=== PATIENT | female | born 1990 | race African-American/Black ===

== ENCOUNTER 2016-06-21 07:32 | Emergency (ER) | payer SELFPAY ==
[~2016-06-21] VITALS: Ht 167.6 cm; Wt 50.0 kg
[~2016-06-21 07:32] MED LIST: ALEVE220 M2 PO; ATIVAN0.5 MG PO; BACTRIM DS1 TAB PO; KEPPRA250 M1 PO; NO HOME MEDS; TORADOL PO; ULTRAM50 MG OR; ULTRAM50 MG PO; ZITHROMAX250 MG OR
[2016-06-21 08:40] LABS: HEMATOCRIT 43.3 % (37.0-47.0); HEMOGLOBIN 14.3 g/dl (12.0-16.0); IMMATURE GRANULOCYTES 0.2 % (0.0-1.0); MEAN CELL VOLUME 89.1 fL CALC (80.0-100.0); MEAN CORPUSCULAR HGB 29.4 pG CALC (26.0-32.0); NEUT# 3.38 thou/uL (2.00-7.15); RED BLOOD COUNT 4.86 mill/uL (4.20-5.60)
[2016-06-21 08:47] LABS: ALBUMIN 4.5 g/dL (3.2-5.0); ALKALINE PHOSPHATASE 71 u/l (38-126); ANION GAP 16 (6-22 (CALC)); BILIRUBIN, TOTAL 0.8 mg/dL (0.0-1.4); BUN 10 mg/dL (7-17); BUN/CREATININE RATIO 11 (12-20 (CALC)); CALCIUM 9.5 mg/dL (8.4-10.2); CARBON DIOXIDE 22 mmol/l (22-30); CHLORIDE 106 mmol/l (95-108); CREATININE 0.9 mg/dL (0.5-1.0); GFR > 60 ML/MIN (>=60 (CALC)); GFR FOR AFR.AMER. > 60 ML/MIN (>=60 (CALC)); GLUCOSE 97 mg/dL (65-105); POTASSIUM 3.7 mmol/l (3.5-5.1); SGOT/AST 20 u/l (14-36); SGPT/ALT 25 u/l (9-52); SODIUM 141 mmol/l (137-146); TOTAL PROTEIN 8.4 g/dL (6.3-8.2)
[2016-06-21] MEDS ORDERED: KEPPRA250 M1 PO (08:58)
[2016-06-21 09:39] VITALS: BP 119/67
[2016-06-21 09:57] LABS: URINE BILIRUBIN - DIPSTICK NEGATIVE (NEGATIVE); URINE BLOOD DIPSTICK TRACE-INTACT (NEGATIVE); URINE CLARITY CLOUDY; URINE COLOR YELLOW; URINE GLUCOSE - DIPSTICK NEGATIVE (NEGATIVE); URINE KETONE NEGATIVE (NEGATIVE); URINE NITRITE - DIPSTICK NEGATIVE (Negative); URINE PROTEIN - DIPSTICK NEGATIVE (NEG-TRACE)
[2016-06-21 09:58] LABS: URINE LEUK ESTERASE MODERATE (NEGATIVE)
[2016-06-21 10:03] LABS: URINE BACTERIA FEW hpf; URINE RBC 0-2 RBC/hpf (0-5); URINE SQUAMOUS EPITHELIAL CELL MANY EPI/hpf (0-FEW)
[2016-06-21 10:04] LABS: BARBITURATES NEGATIVE (NEGATIVE); COCAINE NEGATIVE (NEGATIVE); METHADONE NEGATIVE (NEGATIVE); OXCYCODONE NEGATIVE (NEGATIVE); TETRAHYDROCANNABIONOL POSITIVE (NEGATIVE); TRICYLIC ANTIDEPRESSANTS NEGATIVE (NEGATIVE); URINE MUCUS FEW hpf (NONE-FEW)
== END 2016-06-21 09:51 | disposition home or self-care (01) | DRG 101 ==
LOC: ED 07:32
PROVIDERS: Emergency Medicine
DX: G40.909 Epilepsy, unspecified, not intractable, without status epilepticus (principal); Z91.14 Patient's other noncompliance with medication regimen

== ENCOUNTER 2016-07-02 17:23 | Emergency (ER) | payer SELFPAY ==
[~2016-07-02] VITALS: Ht 167.6 cm; Wt 55.0 kg
[2016-07-02 17:57] LABS: HEMATOCRIT 43.6 % (37.0-47.0); HEMOGLOBIN 14.2 g/dl (12.0-16.0); IMMATURE GRANULOCYTES 0.3 % (0.0-1.0); MEAN CELL VOLUME 90.1 fL CALC (80.0-100.0); MEAN CORPUSCULAR HGB 29.3 pG CALC (26.0-32.0); MEAN CORPUSCULAR HGB CONC 32.6 g/L CALC (32.0-36.0); NEUT# 5.23 thou/uL (2.00-7.15); RED BLOOD COUNT 4.84 mill/uL (4.20-5.60); RED CELL DISTRI WIDTH 13.3 % (11.5-15.5)
[2016-07-02 18:10] LABS: ALBUMIN 4.5 g/dL (3.2-5.0); ALKALINE PHOSPHATASE 62 u/l (38-126); ANION GAP 19 (6-22 (CALC)); BILIRUBIN, TOTAL 0.4 mg/dL (0.0-1.4); BUN 9 mg/dL (7-17); BUN/CREATININE RATIO 9 (12-20 (CALC)); CALCIUM 9.9 mg/dL (8.4-10.2); CARBON DIOXIDE 21 mmol/l (22-30); CHLORIDE 105 mmol/l (95-108); GFR > 60 ML/MIN (>=60 (CALC)); GFR FOR AFR.AMER. > 60 ML/MIN (>=60 (CALC)); GLUCOSE 101 mg/dL (65-105); POTASSIUM 4.2 mmol/l (3.5-5.1); SGOT/AST 21 u/l (14-36); SGPT/ALT 24 u/l (9-52); SODIUM 141 mmol/l (137-146); TOTAL PROTEIN 8.1 g/dL (6.3-8.2)
[2016-07-02] MEDS ORDERED: MIRTAZAPINE15 MG PO (19:20)
[2016-07-02 19:53] LABS: URINE BILIRUBIN - DIPSTICK NEGATIVE (NEGATIVE); URINE BLOOD DIPSTICK TRACE-INTACT (NEGATIVE); URINE COLOR YELLOW; URINE GLUCOSE - DIPSTICK NEGATIVE (NEGATIVE); URINE KETONE TRACE mg/dL (NEGATIVE); URINE NITRITE - DIPSTICK NEGATIVE (Negative); URINE PROTEIN - DIPSTICK 30 mg/dL (NEG-TRACE); URINE SPECIFIC GRAVITY 1.025; URINE UROBILINOGEN - DIPSTICK 0.2 E.U./dL (0.2)
[2016-07-02 19:54] LABS: URINE CLARITY CLOUDY; URINE LEUK ESTERASE MODERATE (NEGATIVE)
[2016-07-02 19:57] LABS: BARBITURATES NEGATIVE (NEGATIVE); COCAINE NEGATIVE (NEGATIVE); METHADONE NEGATIVE (NEGATIVE); OXCYCODONE NEGATIVE (NEGATIVE); TETRAHYDROCANNABIONOL POSITIVE (NEGATIVE); TRICYLIC ANTIDEPRESSANTS NEGATIVE (NEGATIVE)
[2016-07-02 20:21] LABS: URINE BACTERIA RARE hpf; URINE SQUAMOUS EPITHELIAL CELL FEW EPI/hpf (0-FEW)
[2016-07-02] MEDS ORDERED: XANAX0.5 MG PO (20:33)
[2016-07-02 20:40] VITALS: BP 176/76
== END 2016-07-02 20:51 | disposition home or self-care (01) | DRG 101 ==
LOC: ED 17:23
PROVIDERS: Emergency Medicine
DX: R56.9 Unspecified convulsions (principal); F41.9 Anxiety disorder, unspecified

== ENCOUNTER 2016-07-04 17:33 | Emergency (ER) | payer SELFPAY ==
[~2016-07-04] VITALS: Ht 167.6 cm; Wt 54.0 kg
[~2016-07-04 17:33] MED LIST changes: +MIRTAZAPINE15 MG PO; +XANAX0.5 MG PO
[2016-07-04 18:36] LABS: HEMATOCRIT 40.9 % (37.0-47.0); HEMOGLOBIN 13.6 g/dl (12.0-16.0); IMMATURE GRANULOCYTES 0.3 % (0.0-1.0); MEAN CELL VOLUME 88.5 fL CALC (80.0-100.0); MEAN CORPUSCULAR HGB 29.4 pG CALC (26.0-32.0); MEAN CORPUSCULAR HGB CONC 33.3 g/L CALC (32.0-36.0); NEUT# 5.07 thou/uL (2.00-7.15); RED BLOOD COUNT 4.62 mill/uL (4.20-5.60); RED CELL DISTRI WIDTH 13.4 % (11.5-15.5)
[2016-07-04 18:42] LABS: ALBUMIN 4.4 g/dL (3.2-5.0); ALKALINE PHOSPHATASE 67 u/l (38-126); ANION GAP 17 (6-22 (CALC)); BILIRUBIN, TOTAL 0.5 mg/dL (0.0-1.4); BUN 9 mg/dL (7-17); BUN/CREATININE RATIO 10 (12-20 (CALC)); CALCIUM 9.9 mg/dL (8.4-10.2); CARBON DIOXIDE 22 mmol/l (22-30); CHLORIDE 106 mmol/l (95-108); CREATININE 0.9 mg/dL (0.5-1.0); ETHYL ALCOHOL 0 mg/dl (0-30); GFR > 60 ML/MIN (>=60 (CALC)); GFR FOR AFR.AMER. > 60 ML/MIN (>=60 (CALC)); GLUCOSE 115 mg/dL (65-105); POTASSIUM 3.8 mmol/l (3.5-5.1); SGOT/AST 20 u/l (14-36); SGPT/ALT 22 u/l (9-52); SODIUM 141 mmol/l (137-146); TOTAL PROTEIN 7.9 g/dL (6.3-8.2)
[2016-07-04 19:11] LABS: TSH, 3RD GENERATION 0.55 uIU/mL (0.47 - 4.68)
[2016-07-04 19:40] LABS: URINE BILIRUBIN - DIPSTICK NEGATIVE (NEGATIVE); URINE BLOOD DIPSTICK NEGATIVE (NEGATIVE); URINE CLARITY CLEAR; URINE COLOR YELLOW; URINE GLUCOSE - DIPSTICK NEGATIVE (NEGATIVE); URINE KETONE NEGATIVE (NEGATIVE); URINE NITRITE - DIPSTICK NEGATIVE (Negative); URINE PROTEIN - DIPSTICK NEGATIVE (NEG-TRACE); URINE UROBILINOGEN - DIPSTICK 0.2 E.U./dL (0.2)
[2016-07-04 19:41] LABS: URINE LEUK ESTERASE SMALL (NEGATIVE)
[2016-07-04 19:48] LABS: COCAINE NEGATIVE (NEGATIVE); TETRAHYDROCANNABIONOL POSITIVE (NEGATIVE)
[2016-07-04 19:49] LABS: BARBITURATES NEGATIVE (NEGATIVE); METHADONE NEGATIVE (NEGATIVE); OXCYCODONE NEGATIVE (NEGATIVE); TRICYLIC ANTIDEPRESSANTS NEGATIVE (NEGATIVE)
[2016-07-04 19:51] LABS: URINE SQUAMOUS EPITHELIAL CELL FEW EPI/hpf (0-FEW)
[2016-07-04 21:08] VITALS: BP 127/69
== END 2016-07-04 21:20 | disposition home or self-care (01) | DRG 882 ==
LOC: ED 17:33
PROVIDERS: Emergency Medicine
DX: F43.22 Adjustment disorder with anxiety (principal); F17.210 Nicotine dependence, cigarettes, uncomplicated
CPT/HCPCS: J2060

== ENCOUNTER 2016-07-07 16:43 | Emergency (ER) | payer SELFPAY ==
[~2016-07-07] VITALS: Ht 167.6 cm; Wt 50.0 kg
[2016-07-07 18:44] LABS: URINE BILIRUBIN - DIPSTICK NEGATIVE (NEGATIVE); URINE BLOOD DIPSTICK TRACE-INTACT (NEGATIVE); URINE CLARITY CLEAR; URINE COLOR YELLOW; URINE GLUCOSE - DIPSTICK NEGATIVE (NEGATIVE); URINE KETONE NEGATIVE (NEGATIVE); URINE LEUK ESTERASE TRACE (NEGATIVE); URINE NITRITE - DIPSTICK NEGATIVE (Negative); URINE PROTEIN - DIPSTICK NEGATIVE (NEG-TRACE); URINE UROBILINOGEN - DIPSTICK 0.2 E.U./dL (0.2)
[2016-07-07 18:47] LABS: COCAINE NEGATIVE (NEGATIVE); METHADONE NEGATIVE (NEGATIVE); TETRAHYDROCANNABIONOL POSITIVE (NEGATIVE)
[2016-07-07 18:48] LABS: BARBITURATES NEGATIVE (NEGATIVE); OXCYCODONE NEGATIVE (NEGATIVE); TRICYLIC ANTIDEPRESSANTS NEGATIVE (NEGATIVE)
[2016-07-07] MEDS ORDERED: CLONAZEP ODT0.5 MG PO (18:56)
[2016-07-07 19:00] VITALS: BP 129/74
== END 2016-07-07 19:00 | disposition home or self-care (01) | DRG 880 ==
LOC: ED 16:43
PROVIDERS: Emergency Medicine
DX: F41.1 Generalized anxiety disorder (principal); F43.0 Acute stress reaction
CPT/HCPCS: J2060

== ENCOUNTER 2016-07-18 09:52 | Emergency (ER) | payer SELFPAY ==
[~2016-07-18] VITALS: Ht 167.6 cm; Wt 50.0 kg
[~2016-07-18 09:52] MED LIST changes: +CLONAZEP ODT0.5 MG PO
[2016-07-18] MEDS ORDERED: REMERON15 MG PO (10:01)
[2016-07-18] MEDS ORDERED: [UNRECOGNIZED DRUG - REMARK] (10:02)
[2016-07-18 10:34] VITALS: BP 114/71
== END 2016-07-18 10:30 | disposition home or self-care (01) | DRG 880 ==
LOC: ED 09:52
DX: F41.9 Anxiety disorder, unspecified (principal)
CPT/HCPCS: J2060

== ENCOUNTER 2016-08-18 10:17 | Emergency (ER) | payer SELFPAY ==
[~2016-08-18] VITALS: Ht 167.6 cm; Wt 70.0 kg
[~2016-08-18 10:17] MED LIST changes: +REMERON15 MG PO; +[UNRECOGNIZED DRUG - REMARK]
[2016-08-18 10:45] LABS: HEMATOCRIT 40.6 % (37.0-47.0); HEMOGLOBIN 13.6 g/dl (12.0-16.0); IMMATURE GRANULOCYTES 0.2 % (0.0-1.0); MEAN CELL VOLUME 87.7 fL CALC (80.0-100.0); MEAN CORPUSCULAR HGB 29.4 pG CALC (26.0-32.0); MEAN CORPUSCULAR HGB CONC 33.5 g/L CALC (32.0-36.0); NEUT# 3.09 thou/uL (2.00-7.15); RED BLOOD COUNT 4.63 mill/uL (4.20-5.60); RED CELL DISTRI WIDTH 14.2 % (11.5-15.5)
[2016-08-18 10:52] LABS: ALBUMIN 4.5 g/dL (3.2-5.0); ALKALINE PHOSPHATASE 58 u/l (38-126); ANION GAP 15 (6-22 (CALC)); BILIRUBIN, TOTAL 0.4 mg/dL (0.0-1.4); BUN 12 mg/dL (7-17); BUN/CREATININE RATIO 16 (12-20 (CALC)); CALCIUM 9.6 mg/dL (8.4-10.2); CARBON DIOXIDE 24 mmol/l (22-30); CHLORIDE 105 mmol/l (95-108); CREATININE 0.8 mg/dL (0.5-1.0); GFR > 60 ML/MIN (>=60 (CALC)); GFR FOR AFR.AMER. > 60 ML/MIN (>=60 (CALC)); GLUCOSE 88 mg/dL (65-105); MAGNESIUM 1.8 mg/dL (1.6-2.3); POTASSIUM 3.8 mmol/l (3.5-5.1); SGOT/AST 18 u/l (14-36); SGPT/ALT 27 u/l (9-52); SODIUM 141 mmol/l (137-146); TOTAL PROTEIN 7.6 g/dL (6.3-8.2)
[2016-08-18 10:53] LABS: ETHYL ALCOHOL 0 mg/dl (0-30)
[2016-08-18 11:13] LABS: URINE BLOOD DIPSTICK TRACE-LYSED (NEGATIVE); URINE CLARITY SLIGHT CLOUDY; URINE COLOR YELLOW; URINE GLUCOSE - DIPSTICK NEGATIVE (NEGATIVE); URINE KETONE NEGATIVE (NEGATIVE); URINE NITRITE - DIPSTICK NEGATIVE (Negative); URINE PROTEIN - DIPSTICK 30 mg/dL (NEG-TRACE); URINE SPECIFIC GRAVITY >=1.030
[2016-08-18 11:18] LABS: BARBITURATES NEGATIVE (NEGATIVE); COCAINE NEGATIVE (NEGATIVE); METHADONE NEGATIVE (NEGATIVE); OXCYCODONE NEGATIVE (NEGATIVE); TETRAHYDROCANNABIONOL POSITIVE (NEGATIVE); TRICYLIC ANTIDEPRESSANTS NEGATIVE (NEGATIVE)
[2016-08-18 11:20] LABS: URINE BILIRUBIN - DIPSTICK NEGATIVE (NEGATIVE); URINE LEUK ESTERASE MODERATE (NEGATIVE)
[2016-08-18 11:26] LABS: URINE SQUAMOUS EPITHELIAL CELL MANY EPI/hpf (0-FEW)
[2016-08-18] MEDS ORDERED: BACTRIM DS1 TAB PO (12:01)
[2016-08-18 12:21] VITALS: BP 127/84
== END 2016-08-18 12:22 | disposition home or self-care (01) | DRG 690 ==
LOC: ED 10:17
PROVIDERS: Emergency Medicine
DX: N39.0 Urinary tract infection, site not specified (principal); F41.0 Panic disorder [episodic paroxysmal anxiety]; R53.1 Weakness; G40.909 Epilepsy, unspecified, not intractable, without status epilepticus

== ENCOUNTER 2017-03-11 22:45 | Emergency (ER) | payer SELFPAY ==
[~2017-03-11] VITALS: Ht 167.6 cm; Wt 54.5 kg
[2017-03-12 01:15] VITALS: BP 124/86
== END 2017-03-12 01:15 | disposition home or self-care (01) | DRG 605 ==
LOC: ED 22:45
DX: S60.212A Contusion of left wrist, initial encounter (principal); Y04.0XXA Assault by unarmed brawl or fight, initial encounter; Y92.009 Unspecified place in unspecified non-institutional (private) residence as the place of occurrence of the external cause

== ENCOUNTER 2017-04-15 09:09 | Emergency (ER) | payer SELFPAY ==
[~2017-04-15] VITALS: Ht 167.6 cm; Wt 54.5 kg
[2017-04-15 10:00] VITALS: BP 122/71
== END 2017-04-15 10:00 | disposition home or self-care (01) | DRG 918 ==
LOC: ED 09:09
DX: T63.481A Toxic effect of venom of other arthropod, accidental (unintentional), initial encounter (principal); F31.9 Bipolar disorder, unspecified; G40.909 Epilepsy, unspecified, not intractable, without status epilepticus; F41.9 Anxiety disorder, unspecified; Y92.89 Other specified places as the place of occurrence of the external cause; Y99.0 Civilian activity done for income or pay

== ENCOUNTER 2017-05-09 10:47 | Emergency (ER) | payer SELFPAY ==
[~2017-05-09] VITALS: Ht 167.6 cm; Wt 55.0 kg
[2017-05-09] MEDS ORDERED: DILANTIN100 MG PO (11:16)
[2017-05-09 11:41] VITALS: BP 128/90
== END 2017-05-09 15:29 | disposition home or self-care (01) | DRG 101 ==
LOC: ED 10:47
DX: G40.909 Epilepsy, unspecified, not intractable, without status epilepticus (principal); S00.511A Abrasion of lip, initial encounter; S02.5XXA Fracture of tooth (traumatic), initial encounter for closed fracture; X58.XXXA Exposure to other specified factors, initial encounter

== ENCOUNTER 2017-05-15 15:26 | Emergency (ER) | payer SELFPAY ==
[~2017-05-15] VITALS: Ht 167.6 cm; Wt 56.8 kg
[~2017-05-15 15:26] MED LIST changes: +DILANTIN100 MG PO
[2017-05-15 15:44] VITALS: BP 118/57
== END 2017-05-15 15:51 | disposition left against medical advice (07) | DRG 101 ==
LOC: ED 15:26
DX: G40.909 Epilepsy, unspecified, not intractable, without status epilepticus (principal); F31.9 Bipolar disorder, unspecified; F41.9 Anxiety disorder, unspecified; Z91.19 Patient's noncompliance with other medical treatment and regimen

== ENCOUNTER 2017-05-21 13:11 | Emergency (ER) | payer SELFPAY ==
[~2017-05-21] VITALS: Ht 167.6 cm; Wt 68.0 kg
[2017-05-21 13:53] LABS: HEMATOCRIT 36.7 % (37.0-47.0); HEMOGLOBIN 11.9 g/dl (12.0-16.0); IMMATURE GRANULOCYTES 0.2 % (0.0-1.0); MEAN CELL VOLUME 89.5 fL CALC (80.0-100.0); MEAN CORPUSCULAR HGB CONC 32.4 g/L CALC (32.0-36.0); NEUT# 5.7 thou/uL (2.00-7.15); RED BLOOD COUNT 4.1 mill/uL (4.20-5.60); RED CELL DISTRI WIDTH 14.6 % (11.5-15.5)
[2017-05-21 13:56] LABS: URINE BILIRUBIN - DIPSTICK NEGATIVE (NEGATIVE); URINE BLOOD DIPSTICK LARGE (NEGATIVE); URINE COLOR YELLOW; URINE GLUCOSE - DIPSTICK NEGATIVE (NEGATIVE); URINE KETONE 15 mg/dL (NEGATIVE); URINE LEUK ESTERASE NEGATIVE (NEGATIVE); URINE NITRITE - DIPSTICK NEGATIVE (Negative); URINE PROTEIN - DIPSTICK TRACE mg/dL (NEG-TRACE); URINE SPECIFIC GRAVITY 1.025; URINE UROBILINOGEN - DIPSTICK 0.2 E.U./dL (0.2)
[2017-05-21 14:01] LABS: URINE CLARITY CLEAR
[2017-05-21 14:10] LABS: URINE RBC 50-100 RBC/hpf (0-5); URINE SPERM FEW hpf; URINE SQUAMOUS EPITHELIAL CELL FEW EPI/hpf (0-FEW)
[2017-05-21 14:12] LABS: ANION GAP 16 (6-22 (CALC)); BUN 8 mg/dL (7-17); BUN/CREATININE RATIO 10 (12-20 (CALC)); CARBON DIOXIDE 25 mmol/l (22-30); CHLORIDE 105 mmol/l (95-108); CREATININE 0.8 mg/dL (0.5-1.0); GFR > 60 ML/MIN (>=60 (CALC)); GFR FOR AFR.AMER. > 60 ML/MIN (>=60 (CALC)); POTASSIUM 4.1 mmol/l (3.5-5.1); SODIUM 142 mmol/l (137-146)
[2017-05-21 14:13] LABS: PHENYTOIN (DILANTIN) < 3 ug/mL (10 - 20)
[2017-05-21 15:13] VITALS: BP 140/73
== END 2017-05-21 15:28 | disposition home or self-care (01) | DRG 101 ==
LOC: ED 13:11
PROVIDERS: Family Medicine
DX: G40.409 Other generalized epilepsy and epileptic syndromes, not intractable, without status epilepticus (principal); F12.90 Cannabis use, unspecified, uncomplicated; F31.9 Bipolar disorder, unspecified; F41.9 Anxiety disorder, unspecified; Z91.14 Patient's other noncompliance with medication regimen

== ENCOUNTER 2017-05-31 12:29 | Emergency (ER) | payer SELFPAY ==
[~2017-05-31] VITALS: Ht 167.6 cm; Wt 60.0 kg
[2017-05-31 13:07] LABS: HEMOGLOBIN 13.3 g/dl (12.0-16.0); IMMATURE GRANULOCYTES 0.2 % (0.0-1.0); MEAN CELL VOLUME 90.1 fL CALC (80.0-100.0); MEAN CORPUSCULAR HGB 28.5 pG CALC (26.0-32.0); MEAN CORPUSCULAR HGB CONC 31.7 g/L CALC (32.0-36.0); NEUT# 4.76 thou/uL (2.00-7.15); RED BLOOD COUNT 4.66 mill/uL (4.20-5.60); RED CELL DISTRI WIDTH 14.7 % (11.5-15.5)
[2017-05-31 13:23] LABS: ANION GAP 21 (6-22 (CALC)); BUN 12 mg/dL (7-17); BUN/CREATININE RATIO 13 (12-20 (CALC)); CARBON DIOXIDE 20 mmol/l (22-30); CHLORIDE 104 mmol/l (95-108); CREATININE 0.9 mg/dL (0.5-1.0); GFR > 60 ML/MIN (>=60 (CALC)); GFR FOR AFR.AMER. > 60 ML/MIN (>=60 (CALC)); POTASSIUM 4.3 mmol/l (3.5-5.1); SODIUM 140 mmol/l (137-146)
[2017-05-31 14:46] VITALS: BP 110/60
== END 2017-05-31 14:59 | disposition home or self-care (01) | DRG 101 ==
LOC: ED 12:29
PROVIDERS: Family Medicine
DX: G40.409 Other generalized epilepsy and epileptic syndromes, not intractable, without status epilepticus (principal); R55 Syncope and collapse

== ENCOUNTER 2017-06-18 10:00 | Emergency (ER) | payer SELFPAY ==
[~2017-06-18] VITALS: Ht 167.6 cm; Wt 64.0 kg
[2017-06-18 10:32] LABS: HEMATOCRIT 40.8 % (37.0-47.0); HEMOGLOBIN 13.2 g/dl (12.0-16.0); IMMATURE GRANULOCYTES 0.2 % (0.0-1.0); MEAN CELL VOLUME 89.7 fL CALC (80.0-100.0); MEAN CORPUSCULAR HGB CONC 32.4 g/L CALC (32.0-36.0); NEUT# 8.76 thou/uL (2.00-7.15); RED BLOOD COUNT 4.55 mill/uL (4.20-5.60); RED CELL DISTRI WIDTH 14.9 % (11.5-15.5)
[2017-06-18 10:45] LABS: ANION GAP 16 (6-22 (CALC)); BUN 11 mg/dL (7-17); BUN/CREATININE RATIO 14 (12-20 (CALC)); CARBON DIOXIDE 23 mmol/l (22-30); CHLORIDE 107 mmol/l (95-108); CREATININE 0.8 mg/dL (0.5-1.0); GFR > 60 ML/MIN (>=60 (CALC)); GFR FOR AFR.AMER. > 60 ML/MIN (>=60 (CALC)); POTASSIUM 4.2 mmol/l (3.5-5.1); SODIUM 142 mmol/l (137-146)
[2017-06-18 11:08] LABS: PHENYTOIN (DILANTIN) < 3 ug/mL (10 - 20)
[2017-06-18] MEDS ORDERED: DILANTIN100 MG PO (11:12)
[2017-06-18 14:46] VITALS: BP 112/68
== END 2017-06-18 14:47 | disposition home or self-care (01) | DRG 101 ==
LOC: ED 10:00
PROVIDERS: Family Medicine
DX: G40.409 Other generalized epilepsy and epileptic syndromes, not intractable, without status epilepticus (principal); F31.9 Bipolar disorder, unspecified; F41.9 Anxiety disorder, unspecified; S01.552A Open bite of oral cavity, initial encounter; X58.XXXA Exposure to other specified factors, initial encounter; Z91.14 Patient's other noncompliance with medication regimen

== ENCOUNTER 2017-09-18 09:02 | Emergency (ER) | payer SELFPAY ==
[~2017-09-18] VITALS: Ht 167.6 cm; Wt 59.0 kg
[2017-09-18 09:47] LABS: HEMATOCRIT 42.4 % (37.0-47.0); HEMOGLOBIN 13.4 g/dl (12.0-16.0); IMMATURE GRANULOCYTES 0.2 % (0.0-5.0); MEAN CELL VOLUME 91.4 fL CALC (80.0-100.0); MEAN CORPUSCULAR HGB 28.9 pG CALC (26.0-32.0); MEAN CORPUSCULAR HGB CONC 31.6 g/L CALC (32.0-36.0); NEUT# 2.79 thou/uL (2.00-7.15); RED BLOOD COUNT 4.64 mill/uL (4.20-5.60); RED CELL DISTRI WIDTH 15.6 % (11.5-15.5)
[2017-09-18 10:00] LABS: ALBUMIN 4.4 g/dL (3.2-5.0); ANION GAP 11 (6-22 (CALC)); BILIRUBIN, TOTAL 0.3 mg/dL (0.0-1.4); BUN 9 mg/dL (7-17); BUN/CREATININE RATIO 13 (12-20 (CALC)); CARBON DIOXIDE 23 mmol/l (22-30); CHLORIDE 110 mmol/l (95-108); CREATININE 0.7 mg/dL (0.5-1.0); GFR > 60 ML/MIN (>=60 (CALC)); GFR FOR AFR.AMER. > 60 ML/MIN (>=60 (CALC)); SGOT/AST 17 u/l (14-36); SGPT/ALT 22 u/l (9-52); SODIUM 141 mmol/l (137-146); TOTAL PROTEIN 7.8 g/dL (6.3-8.2)
[2017-09-18 10:01] LABS: ALKALINE PHOSPHATASE 108 u/l (38-126); PHENYTOIN (DILANTIN) < 3 ug/mL (10 - 20)
[2017-09-18] MEDS ORDERED: DILANTIN100 MG PO (10:20)
[2017-09-18 10:30] VITALS: BP 122/80
== END 2017-09-18 10:33 | disposition home or self-care (01) | DRG 101 ==
LOC: ED 09:02
PROVIDERS: Emergency Medicine
DX: G40.909 Epilepsy, unspecified, not intractable, without status epilepticus (principal); Z91.14 Patient's other noncompliance with medication regimen; F41.9 Anxiety disorder, unspecified

== ENCOUNTER 2017-11-30 17:08 | Emergency (ER) | payer SELFPAY ==
[~2017-11-30] VITALS: Ht 167.6 cm; Wt 54.0 kg
[2017-11-30] MEDS ORDERED: TRAMADOL HCL50 MG PO (17:59)
[2017-11-30 18:05] VITALS: BP 128/88
== END 2017-11-30 18:05 | disposition home or self-care (01) | DRG 605 ==
LOC: ED 17:08
DX: S40.011A Contusion of right shoulder, initial encounter (principal); W22.8XXA Striking against or struck by other objects, initial encounter; Y93.89 Activity, other specified; Y92.000 Kitchen of unspecified non-institutional (private) residence as the place of occurrence of the external cause

== ENCOUNTER 2018-01-16 11:06 | Emergency (ER) | payer SELFPAY ==
[~2018-01-16] VITALS: Ht 167.6 cm; Wt 50.0 kg
[~2018-01-16 11:06] MED LIST changes: +TRAMADOL HCL50 MG PO
[2018-01-16 11:34] LABS: HEMATOCRIT 38.5 % (37.0-47.0); HEMOGLOBIN 12.6 g/dl (12.0-16.0); IMMATURE GRANULOCYTES 0.2 % (0.0-5.0); MEAN CELL VOLUME 88.7 fL CALC (80.0-100.0); MEAN CORPUSCULAR HGB CONC 32.7 g/L CALC (32.0-36.0); NEUT# 4.27 thou/uL (2.00-7.15); RED BLOOD COUNT 4.34 mill/uL (4.20-5.60); RED CELL DISTRI WIDTH 14.8 % (11.5-15.5)
[2018-01-16 12:07] LABS: ANION GAP 9 (6-22 (CALC)); BUN 8 mg/dL (7-17); BUN/CREATININE RATIO 11 (12-20 (CALC)); CARBON DIOXIDE 25 mmol/l (22-30); CHLORIDE 110 mmol/l (95-108); CREATININE 0.7 mg/dL (0.5-1.0); GFR > 60 ML/MIN (>=60 (CALC)); GFR FOR AFR.AMER. > 60 ML/MIN (>=60 (CALC)); POTASSIUM 4.4 mmol/l (3.5-5.1); SODIUM 140 mmol/l (137-146)
[2018-01-16 12:15] LABS: PHENYTOIN (DILANTIN) < 3 ug/mL (10 - 20)
[2018-01-16] MEDS ORDERED: DILANTIN100 MG PO (12:36)
[2018-01-16] MEDS ORDERED: ONDANSETRON4 MG PO (12:36)
[2018-01-16 13:23] VITALS: BP 151/69
== END 2018-01-16 13:22 | disposition home or self-care (01) | DRG 101 ==
LOC: ED 11:06
PROVIDERS: Family Medicine
DX: G40.909 Epilepsy, unspecified, not intractable, without status epilepticus (principal); S00.03XA Contusion of scalp, initial encounter; F31.9 Bipolar disorder, unspecified; F41.9 Anxiety disorder, unspecified; F17.200 Nicotine dependence, unspecified, uncomplicated; X58.XXXA Exposure to other specified factors, initial encounter

== ENCOUNTER 2018-01-26 11:52 | Emergency (ER) | payer SELFPAY ==
[~2018-01-26] VITALS: Ht 167.6 cm; Wt 54.0 kg
[~2018-01-26 11:52] MED LIST changes: +ONDANSETRON4 MG PO
[2018-01-26] MEDS ORDERED: PHENYTOIN EX100 M1 PO (12:30)
[2018-01-26 13:51] LABS: HEMATOCRIT 37.9 % (37.0-47.0); HEMOGLOBIN 12.5 g/dl (12.0-16.0); IMMATURE GRANULOCYTES 0.2 % (0.0-5.0); MEAN CELL VOLUME 89.4 fL CALC (80.0-100.0); MEAN CORPUSCULAR HGB 29.5 pG CALC (26.0-32.0); NEUT# 3.67 thou/uL (2.00-7.15); RED BLOOD COUNT 4.24 mill/uL (4.20-5.60); RED CELL DISTRI WIDTH 14.7 % (11.5-15.5)
[2018-01-26 14:06] LABS: ANION GAP 9 (6-22 (CALC)); BUN 7 mg/dL (7-17); BUN/CREATININE RATIO 11 (12-20 (CALC)); CARBON DIOXIDE 26 mmol/l (22-30); CHLORIDE 107 mmol/l (95-108); CREATININE 0.6 mg/dL (0.5-1.0); GFR > 60 ML/MIN (>=60 (CALC)); GFR FOR AFR.AMER. > 60 ML/MIN (>=60 (CALC)); PHENYTOIN (DILANTIN) 6 ug/mL (10 - 20); SODIUM 138 mmol/l (137-146)
[2018-01-26 14:28] VITALS: BP 116/63
== END 2018-01-26 14:30 | disposition home or self-care (01) | DRG 948 ==
LOC: ED 11:52
PROVIDERS: Family Medicine
DX: R53.1 Weakness (principal); M25.521 Pain in right elbow; Z91.81 History of falling; R20.2 Paresthesia of skin; G40.909 Epilepsy, unspecified, not intractable, without status epilepticus

== ENCOUNTER 2018-02-22 08:21 | Emergency (ER) | payer SELFPAY ==
[~2018-02-22] VITALS: Ht 167.6 cm; Wt 50.0 kg
[~2018-02-22 08:21] MED LIST changes: +PHENYTOIN EX100 M1 PO
[2018-02-22 08:56] LABS: HEMATOCRIT 38.5 % (37.0-47.0); HEMOGLOBIN 12.5 g/dl (12.0-16.0); IMMATURE GRANULOCYTES 0.2 % (0.0-5.0); MEAN CELL VOLUME 91.2 fL CALC (80.0-100.0); MEAN CORPUSCULAR HGB 29.6 pG CALC (26.0-32.0); MEAN CORPUSCULAR HGB CONC 32.5 g/L CALC (32.0-36.0); NEUT# 3.09 thou/uL (2.00-7.15); RED BLOOD COUNT 4.22 mill/uL (4.20-5.60); RED CELL DISTRI WIDTH 15.3 % (11.5-15.5)
[2018-02-22 09:15] LABS: ALBUMIN 3.9 g/dL (3.2-5.0); ALKALINE PHOSPHATASE 97 u/l (38-126); ANION GAP 16 (6-22 (CALC)); BILIRUBIN, TOTAL 0.1 mg/dL (0.0-1.4); BUN 10 mg/dL (7-17); BUN/CREATININE RATIO 13 (12-20 (CALC)); CARBON DIOXIDE 19 mmol/l (22-30); CHLORIDE 109 mmol/l (95-108); CREATININE 0.8 mg/dL (0.5-1.0); GFR > 60 ML/MIN (>=60 (CALC)); GFR FOR AFR.AMER. > 60 ML/MIN (>=60 (CALC)); POTASSIUM 3.9 mmol/l (3.5-5.1); SGOT/AST 24 u/l (14-36); SODIUM 140 mmol/l (137-146); TOTAL PROTEIN 7.2 g/dL (6.3-8.2)
[2018-02-22] MEDS ORDERED: DILANTIN100 MG PO (11:13)
[2018-02-22 11:17] VITALS: BP 111/59
== END 2018-02-22 11:32 | disposition home or self-care (01) | DRG 101 ==
LOC: ED 08:21
PROVIDERS: Emergency Medicine
DX: G40.909 Epilepsy, unspecified, not intractable, without status epilepticus (principal); F31.9 Bipolar disorder, unspecified; Z79.899 Other long term (current) drug therapy
CPT/HCPCS: J2060

== ENCOUNTER 2018-03-30 11:28 | Emergency (ER) | payer SELFPAY ==
[~2018-03-30] VITALS: Ht 167.6 cm; Wt 49.4 kg
[2018-03-30 12:14] LABS: HEMATOCRIT 40.3 % (37.0-47.0); HEMOGLOBIN 13.2 g/dl (12.0-16.0); IMMATURE GRANULOCYTES 0.2 % (0.0-5.0); MEAN CELL VOLUME 89.8 fL CALC (80.0-100.0); MEAN CORPUSCULAR HGB 29.4 pG CALC (26.0-32.0); MEAN CORPUSCULAR HGB CONC 32.8 g/L CALC (32.0-36.0); NEUT# 7.4 thou/uL (2.00-7.15); RED BLOOD COUNT 4.49 mill/uL (4.20-5.60); RED CELL DISTRI WIDTH 14.8 % (11.5-15.5)
[2018-03-30 12:35] LABS: ALBUMIN 4.5 g/dL (3.2-5.0); ALKALINE PHOSPHATASE 86 u/l (38-126); ANION GAP 13 (6-22 (CALC)); BILIRUBIN, TOTAL 0.4 mg/dL (0.0-1.4); BUN 12 mg/dL (7-17); BUN/CREATININE RATIO 17 (12-20 (CALC)); CARBON DIOXIDE 24 mmol/l (22-30); CHLORIDE 105 mmol/l (95-108); CREATININE 0.7 mg/dL (0.5-1.0); GFR > 60 ML/MIN (>=60 (CALC)); GFR FOR AFR.AMER. > 60 ML/MIN (>=60 (CALC)); POTASSIUM 4.5 mmol/l (3.5-5.1); SGOT/AST 23 u/l (14-36); SODIUM 138 mmol/l (137-146); TOTAL PROTEIN 7.7 g/dL (6.3-8.2)
[2018-03-30 12:36] LABS: PHENYTOIN (DILANTIN) < 3 ug/mL (10 - 20)
[2018-03-30 13:06] LABS: BARBITURATES POSITIVE (NEGATIVE); COCAINE POSITIVE (NEGATIVE); METHADONE NEGATIVE (NEGATIVE); OXCYCODONE NEGATIVE (NEGATIVE); TETRAHYDROCANNABIONOL POSITIVE (NEGATIVE); TRICYLIC ANTIDEPRESSANTS NEGATIVE (NEGATIVE)
[2018-03-30 14:10] VITALS: BP 97/63
== END 2018-03-30 14:40 | disposition home or self-care (01) | DRG 101 ==
LOC: ED 11:28
PROVIDERS: Emergency Medicine
DX: G40.909 Epilepsy, unspecified, not intractable, without status epilepticus (principal); F14.90 Cocaine use, unspecified, uncomplicated; F12.90 Cannabis use, unspecified, uncomplicated; Z91.14 Patient's other noncompliance with medication regimen; F17.210 Nicotine dependence, cigarettes, uncomplicated

== ENCOUNTER 2018-04-05 17:43 | Emergency (ER) | payer SELFPAY ==
[~2018-04-05] VITALS: Ht 167.6 cm; Wt 49.0 kg
[2018-04-05] MEDS ORDERED: DILANTIN100 MG PO (18:07)
[2018-04-05] MEDS ORDERED: LORTAB 1010 MG PO (18:57)
[2018-04-05 19:15] VITALS: BP 112/64
== END 2018-04-05 19:15 | disposition home or self-care (01) | DRG 101 ==
LOC: ED 17:43
PROC: 2W3CX1Z Immobilization of Right Lower Arm using Splint (ICD-10-PCS; principal; 2018-04-05)
DX: G40.909 Epilepsy, unspecified, not intractable, without status epilepticus (principal); F31.9 Bipolar disorder, unspecified; F41.9 Anxiety disorder, unspecified; S62.141A Displaced fracture of body of hamate [unciform] bone, right wrist, initial encounter for closed fracture; Y35.893A Legal intervention involving other specified means, suspect injured, initial encounter

== ENCOUNTER 2018-04-15 11:06 | Emergency (ER) | payer SELFPAY ==
[~2018-04-15] VITALS: Ht 167.6 cm; Wt 47.0 kg
[~2018-04-15 11:06] MED LIST changes: +LORTAB 1010 MG PO
[2018-04-15 14:17] VITALS: BP 112/64
== END 2018-04-15 14:17 | disposition home or self-care (01) | DRG 605 ==
LOC: ED 11:06
DX: S60.221A Contusion of right hand, initial encounter (principal); F17.200 Nicotine dependence, unspecified, uncomplicated; G40.909 Epilepsy, unspecified, not intractable, without status epilepticus; F31.9 Bipolar disorder, unspecified; F41.9 Anxiety disorder, unspecified; X58.XXXA Exposure to other specified factors, initial encounter

== ENCOUNTER 2018-05-02 15:26 | Emergency (ER) | payer SELFPAY ==
[~2018-05-02] VITALS: Ht 167.6 cm; Wt 60.0 kg
[2018-05-02 16:05] LABS: HEMATOCRIT 39.3 % (37.0-47.0); HEMOGLOBIN 12.3 g/dl (12.0-16.0); IMMATURE GRANULOCYTES 0.2 % (0.0-5.0); MEAN CELL VOLUME 93.6 fL CALC (80.0-100.0); MEAN CORPUSCULAR HGB 29.3 pG CALC (26.0-32.0); MEAN CORPUSCULAR HGB CONC 31.3 g/L CALC (32.0-36.0); NEUT# 6.68 thou/uL (2.00-7.15); RED BLOOD COUNT 4.2 mill/uL (4.20-5.60); RED CELL DISTRI WIDTH 14.8 % (11.5-15.5)
[2018-05-02 16:18] LABS: ANION GAP 22 (6-22 (CALC)); BUN 8 mg/dL (7-17); BUN/CREATININE RATIO 11 (12-20 (CALC)); CHLORIDE 107 mmol/l (95-108); CREATININE 0.7 mg/dL (0.5-1.0); GFR > 60 ML/MIN (>=60 (CALC)); GFR FOR AFR.AMER. > 60 ML/MIN (>=60 (CALC)); POTASSIUM 3.7 mmol/l (3.5-5.1); SODIUM 139 mmol/l (137-146)
[2018-05-02 16:24] LABS: CARBON DIOXIDE 14 mmol/l (22-30)
[2018-05-02] MEDS ORDERED: DILANTIN100 MG PO (17:15)
[2018-05-02 17:21] VITALS: BP 116/68
== END 2018-05-02 18:04 | disposition home or self-care (01) | DRG 101 ==
LOC: ED 15:26
PROVIDERS: Family Medicine
DX: G40.909 Epilepsy, unspecified, not intractable, without status epilepticus (principal); F17.200 Nicotine dependence, unspecified, uncomplicated; T42.0X6A Underdosing of hydantoin derivatives, initial encounter; Z91.128 Patient's intentional underdosing of medication regimen for other reason

== ENCOUNTER 2018-06-26 13:06 | Emergency (ER) | payer SELFPAY ==
[~2018-06-26] VITALS: Ht 167.6 cm; Wt 50.0 kg
[2018-06-26] MEDS ORDERED: CLOZAPINE25 MG PO (13:18)
[2018-06-26 14:50] LABS: HEMATOCRIT 40.3 % (37.0-47.0); HEMOGLOBIN 12.9 g/dl (12.0-16.0); IMMATURE GRANULOCYTES 0.1 % (0.0-5.0); MEAN CELL VOLUME 90.2 fL CALC (80.0-100.0); MEAN CORPUSCULAR HGB 28.9 pG CALC (26.0-32.0); NEUT# 4.26 thou/uL (2.00-7.15); RED BLOOD COUNT 4.47 mill/uL (4.20-5.60); RED CELL DISTRI WIDTH 15.5 % (11.5-15.5)
[2018-06-26 14:51] LABS: URINE BILIRUBIN - DIPSTICK NEGATIVE (NEGATIVE); URINE BLOOD DIPSTICK TRACE-INTACT (NEGATIVE); URINE COLOR YELLOW; URINE GLUCOSE - DIPSTICK NEGATIVE (NEGATIVE); URINE KETONE NEGATIVE (NEGATIVE); URINE LEUK ESTERASE NEGATIVE (NEGATIVE); URINE NITRITE - DIPSTICK NEGATIVE (Negative); URINE PROTEIN - DIPSTICK NEGATIVE (NEG-TRACE); URINE UROBILINOGEN - DIPSTICK 0.2 E.U./dL (0.2)
[2018-06-26 14:55] LABS: BARBITURATES NEGATIVE (NEGATIVE); COCAINE NEGATIVE (NEGATIVE); METHADONE NEGATIVE (NEGATIVE); OXCYCODONE NEGATIVE (NEGATIVE); TETRAHYDROCANNABIONOL NEGATIVE (NEGATIVE); TRICYLIC ANTIDEPRESSANTS NEGATIVE (NEGATIVE)
[2018-06-26 15:02] LABS: ALBUMIN 4.3 g/dL (3.2-5.0); ALKALINE PHOSPHATASE 112 u/l (38-126); ANION GAP 13 (6-22 (CALC)); BILIRUBIN, TOTAL 0.2 mg/dL (0.0-1.4); BUN 10 mg/dL (7-17); BUN/CREATININE RATIO 15 (12-20 (CALC)); CHLORIDE 105 mmol/l (95-108); CREATININE 0.6 mg/dL (0.5-1.0); GFR > 60 ML/MIN (>=60 (CALC)); GFR FOR AFR.AMER. > 60 ML/MIN (>=60 (CALC)); POTASSIUM 3.9 mmol/l (3.5-5.1); SGOT/AST 22 u/l (14-36); SODIUM 140 mmol/l (137-146); TOTAL PROTEIN 7.4 g/dL (6.3-8.2)
[2018-06-26 15:04] LABS: CARBON DIOXIDE 26 mmol/l (22-30)
[2018-06-26 16:20] VITALS: BP 114/71
== END 2018-06-26 16:20 | disposition home or self-care (01) | DRG 948 ==
LOC: ED 13:06
PROVIDERS: Emergency Medicine
DX: R53.1 Weakness (principal)

== ENCOUNTER 2018-08-17 14:36 | Emergency (ER) | payer SELFPAY ==
[~2018-08-17] VITALS: Ht 167.6 cm; Wt 65.0 kg
[~2018-08-17 14:36] MED LIST changes: +CLOZAPINE25 MG PO
[2018-08-17] MEDS ORDERED: DILANTIN100 MG PO (14:48)
[2018-08-17] MEDS ORDERED: MIRTAZAPINE15 M1 PO (14:49)
[2018-08-17] MEDS ORDERED: RISPERIDONE0.5 MG PO (14:50)
[2018-08-17] MEDS ORDERED: CLEOCIN300 MG PO (15:25)
[2018-08-17] MEDS ORDERED: ULTRAM50 M1 PO (15:25)
[2018-08-17 15:30] VITALS: BP 131/76
== END 2018-08-17 15:30 | disposition home or self-care (01) | DRG 159 ==
LOC: ED 14:36
DX: K08.89 Other specified disorders of teeth and supporting structures (principal)

== ENCOUNTER 2018-09-04 21:01 | Emergency (ER) | payer SELFPAY ==
[~2018-09-04] VITALS: Ht 167.6 cm; Wt 58.2 kg
[~2018-09-04 21:01] MED LIST changes: +CLEOCIN300 MG PO; +MIRTAZAPINE15 M1 PO; +RISPERIDONE0.5 MG PO; +ULTRAM50 M1 PO
[2018-09-04] MEDS ORDERED: CIPROFLOXACN500 MG PO (22:10)
[2018-09-04] MEDS ORDERED: FLOXIN OTIC0.3 % AD (22:10)
[2018-09-04] MEDS ORDERED: ULTRAM50 M1 PO (22:10)
[2018-09-04 22:20] VITALS: BP 106/70
== END 2018-09-04 22:20 | disposition home or self-care (01) | DRG 153 ==
LOC: ED 21:01
DX: H66.91 Otitis media, unspecified, right ear (principal); G40.909 Epilepsy, unspecified, not intractable, without status epilepticus; F17.200 Nicotine dependence, unspecified, uncomplicated

== ENCOUNTER 2018-10-11 19:02 | Emergency (ER) | payer SELFPAY ==
[~2018-10-11] VITALS: Ht 167.6 cm; Wt 54.5 kg
[~2018-10-11 19:02] MED LIST changes: +CIPROFLOXACN500 MG PO; +FLOXIN OTIC0.3 % AD
[2018-10-11 19:27] LABS: HEMATOCRIT 43.1 % (37.0-47.0); HEMOGLOBIN 13.6 g/dl (12.0-16.0); IMMATURE GRANULOCYTES 0.3 % (0.0-5.0); MEAN CELL VOLUME 90.7 fL CALC (80.0-100.0); MEAN CORPUSCULAR HGB 28.6 pG CALC (26.0-32.0); MEAN CORPUSCULAR HGB CONC 31.6 g/L CALC (32.0-36.0); NEUT# 4.29 thou/uL (2.00-7.15); RED BLOOD COUNT 4.75 mill/uL (4.20-5.60)
[2018-10-11 19:43] LABS: ALBUMIN 4.9 g/dL (3.2-5.0); ALKALINE PHOSPHATASE 82 u/l (38-126); BUN 12 mg/dL (7-17); BUN/CREATININE RATIO 13 (12-20 (CALC)); CHLORIDE 107 mmol/l (95-108); CREATININE 0.9 mg/dL (0.5-1.0); GFR > 60 ML/MIN (>=60 (CALC)); GFR FOR AFR.AMER. > 60 ML/MIN (>=60 (CALC)); POTASSIUM 3.9 mmol/l (3.5-5.1); SGOT/AST 23 u/l (14-36); SODIUM 141 mmol/l (137-146); TOTAL PROTEIN 8.5 g/dL (6.3-8.2)
[2018-10-11 19:48] LABS: ANION GAP 24 (6-22 (CALC)); BILIRUBIN, TOTAL 0.3 mg/dL (0.0-1.4); CARBON DIOXIDE 14 mmol/l (22-30); MAGNESIUM 2.4 mg/dL (1.6-2.3); PHENYTOIN (DILANTIN) < 3 ug/mL (10 - 20)
[2018-10-11 21:05] LABS: URINE BILIRUBIN - DIPSTICK NEGATIVE (NEGATIVE); URINE BLOOD DIPSTICK TRACE-INTACT (NEGATIVE); URINE COLOR YELLOW; URINE GLUCOSE - DIPSTICK NEGATIVE (NEGATIVE); URINE KETONE NEGATIVE (NEGATIVE); URINE LEUK ESTERASE NEGATIVE (NEGATIVE); URINE NITRITE - DIPSTICK NEGATIVE (Negative); URINE PROTEIN - DIPSTICK NEGATIVE (NEG-TRACE); URINE UROBILINOGEN - DIPSTICK 0.2 E.U./dL (0.2)
[2018-10-11 21:12] LABS: BARBITURATES NEGATIVE (NEGATIVE); COCAINE NEGATIVE (NEGATIVE); METHADONE NEGATIVE (NEGATIVE); OXCYCODONE NEGATIVE (NEGATIVE); TETRAHYDROCANNABIONOL NEGATIVE (NEGATIVE); TRICYLIC ANTIDEPRESSANTS NEGATIVE (NEGATIVE)
[2018-10-11 23:21] VITALS: BP 114/66
== END 2018-10-11 23:21 | disposition home or self-care (01) | DRG 101 ==
LOC: ED 19:02
PROVIDERS: Family Medicine
DX: G40.909 Epilepsy, unspecified, not intractable, without status epilepticus (principal); Z91.14 Patient's other noncompliance with medication regimen; F17.210 Nicotine dependence, cigarettes, uncomplicated

== ENCOUNTER 2019-01-28 11:10 | Emergency (ER) | payer SELFPAY ==
[~2019-01-28] VITALS: Ht 167.6 cm; Wt 63.3 kg
[2019-01-28 12:23] LABS: HEMATOCRIT 41.5 % (37.0-47.0); HEMOGLOBIN 13.4 g/dl (12.0-16.0); IMMATURE GRANULOCYTES 0.2 % (0.0-5.0); MEAN CELL VOLUME 87.7 fL CALC (80.0-100.0); MEAN CORPUSCULAR HGB 28.3 pG CALC (26.0-32.0); MEAN CORPUSCULAR HGB CONC 32.3 g/L CALC (32.0-36.0); NEUT# 3.19 thou/uL (2.00-7.15); RED BLOOD COUNT 4.73 mill/uL (4.20-5.60); RED CELL DISTRI WIDTH 14.7 % (11.5-15.5)
[2019-01-28 13:29] LABS: ALBUMIN 4.1 g/dL (3.2-5.0); ALKALINE PHOSPHATASE 84 u/l (38-126); ANION GAP 13 (6-22 (CALC)); BUN 11 mg/dL (7-17); BUN/CREATININE RATIO 15 (12-20 (CALC)); CARBON DIOXIDE 16 mmol/l (22-30); CHLORIDE 114 mmol/l (95-108); CREATININE 0.7 mg/dL (0.5-1.0); GFR > 60 ML/MIN (>=60 (CALC)); GFR FOR AFR.AMER. > 60 ML/MIN (>=60 (CALC)); POTASSIUM 3.6 mmol/l (3.5-5.1); SGOT/AST 19 u/l (14-36); SODIUM 139 mmol/l (137-146); TOTAL PROTEIN 7.5 g/dL (6.3-8.2)
[2019-01-28 13:36] LABS: BILIRUBIN, TOTAL 0.5 mg/dL (0.0-1.4)
[2019-01-28 14:15] LABS: URINE BILIRUBIN - DIPSTICK NEGATIVE (NEGATIVE); URINE BLOOD DIPSTICK NEGATIVE (NEGATIVE); URINE COLOR YELLOW; URINE GLUCOSE - DIPSTICK NEGATIVE (NEGATIVE); URINE KETONE 15 mg/dL (NEGATIVE); URINE LEUK ESTERASE NEGATIVE (NEGATIVE); URINE NITRITE - DIPSTICK NEGATIVE (Negative); URINE PROTEIN - DIPSTICK NEGATIVE (NEG-TRACE); URINE SPECIFIC GRAVITY 1.015; URINE UROBILINOGEN - DIPSTICK 0.2 E.U./dL (0.2)
[2019-01-28 15:05] LABS: COCAINE NEGATIVE (NEGATIVE); TETRAHYDROCANNABIONOL POSITIVE (NEGATIVE)
[2019-01-28 15:06] LABS: BARBITURATES POSITIVE (NEGATIVE); METHADONE NEGATIVE (NEGATIVE); OXCYCODONE NEGATIVE (NEGATIVE); TRICYLIC ANTIDEPRESSANTS NEGATIVE (NEGATIVE)
[2019-01-28 15:32] VITALS: BP 130/86
== END 2019-01-28 15:32 | disposition other institution (70) | DRG 885 ==
LOC: ED 11:10
PROVIDERS: Family Medicine
DX: F31.5 Bipolar disorder, current episode depressed, severe, with psychotic features (principal); G40.909 Epilepsy, unspecified, not intractable, without status epilepticus; F41.9 Anxiety disorder, unspecified; F17.200 Nicotine dependence, unspecified, uncomplicated

== ENCOUNTER 2019-04-09 | Emergency (ER) | payer SELFPAY ==
[2019-04-09 11:02] LABS: HEMATOCRIT 41.5 % (37.0-47.0); HEMOGLOBIN 13.4 g/dl (12.0-16.0); IMMATURE GRANULOCYTES 0.2 % (0.0-5.0); MEAN CELL VOLUME 87.9 fL CALC (80.0-100.0); MEAN CORPUSCULAR HGB 28.4 pG CALC (26.0-32.0); MEAN CORPUSCULAR HGB CONC 32.3 g/L CALC (32.0-36.0); NEUT# 3.37 thou/uL (2.00-7.15); RED BLOOD COUNT 4.72 mill/uL (4.20-5.60); RED CELL DISTRI WIDTH 14.6 % (11.5-15.5)
[2019-04-09 11:14] LABS: URINE BILIRUBIN - DIPSTICK NEGATIVE (NEGATIVE); URINE BLOOD DIPSTICK TRACE-LYSED (NEGATIVE); URINE COLOR YELLOW; URINE GLUCOSE - DIPSTICK NEGATIVE (NEGATIVE); URINE KETONE NEGATIVE (NEGATIVE); URINE LEUK ESTERASE NEGATIVE (NEGATIVE); URINE NITRITE - DIPSTICK NEGATIVE (Negative); URINE PROTEIN - DIPSTICK NEGATIVE (NEG-TRACE); URINE SPECIFIC GRAVITY 1.015
[2019-04-09 11:23] LABS: COCAINE POSITIVE (NEGATIVE); METHADONE NEGATIVE (NEGATIVE); TETRAHYDROCANNABIONOL POSITIVE (NEGATIVE); TRICYLIC ANTIDEPRESSANTS NEGATIVE (NEGATIVE)
[2019-04-09 11:24] LABS: BARBITURATES POSITIVE (NEGATIVE); OXCYCODONE NEGATIVE (NEGATIVE)
[2019-04-09 11:27] LABS: ALBUMIN 4.7 g/dL (3.2-5.0); ALKALINE PHOSPHATASE 92 u/l (38-126); ANION GAP 15 (6-22 (CALC)); BILIRUBIN, TOTAL 0.4 mg/dL (0.0-1.4); BUN 10 mg/dL (7-17); BUN/CREATININE RATIO 13 (12-20 (CALC)); CHLORIDE 107 mmol/l (95-108); CREATININE 0.8 mg/dL (0.5-1.0); GFR > 60 ML/MIN (>=60 (CALC)); GFR FOR AFR.AMER. > 60 ML/MIN (>=60 (CALC)); PHENYTOIN (DILANTIN) < 3 ug/mL (10 - 20); POTASSIUM 4.1 mmol/l (3.5-5.1); SGOT/AST 20 u/l (14-36); SODIUM 139 mmol/l (137-146); TOTAL PROTEIN 8.4 g/dL (6.3-8.2)
[2019-04-09 11:28] LABS: CARBON DIOXIDE 21 mmol/l (22-30)
== END 2019-04-09 12:17 | disposition home or self-care (01) | DRG 880 ==
PROVIDERS: Emergency Medicine
DX: F41.9 Anxiety disorder, unspecified (principal); G40.909 Epilepsy, unspecified, not intractable, without status epilepticus

== ENCOUNTER 2019-05-30 | Emergency (ER) | payer SELFPAY ==
[2019-05-30 14:28] LABS: HEMATOCRIT 39.1 % (37.0-47.0); HEMOGLOBIN 12.5 g/dl (12.0-16.0); MEAN CELL VOLUME 88.9 fL CALC (80.0-100.0); MEAN CORPUSCULAR HGB 28.4 pG CALC (26.0-32.0); NEUT# 2.74 thou/uL (2.00-7.15); RED BLOOD COUNT 4.4 mill/uL (4.20-5.60); RED CELL DISTRI WIDTH 14.8 % (11.5-15.5)
[2019-05-30 14:50] LABS: ALBUMIN 4.2 g/dL (3.2-5.0); ALKALINE PHOSPHATASE 89 u/l (38-126); ANION GAP 11 (6-22 (CALC)); BILIRUBIN, TOTAL 0.3 mg/dL (0.0-1.4); BUN 5 mg/dL (7-17); BUN/CREATININE RATIO 7 (12-20 (CALC)); CHLORIDE 106 mmol/l (95-108); CREATININE 0.8 mg/dL (0.5-1.0); ETHYL ALCOHOL 0 mg/dl (0-30); GFR > 60 ML/MIN (>=60 (CALC)); GFR FOR AFR.AMER. > 60 ML/MIN (>=60 (CALC)); SGOT/AST 22 u/l (14-36); SODIUM 139 mmol/l (137-146); TOTAL PROTEIN 7.5 g/dL (6.3-8.2)
[2019-05-30 14:51] LABS: CARBON DIOXIDE 26 mmol/l (22-30)
[2019-05-30 15:50] LABS: URINE BILIRUBIN - DIPSTICK NEGATIVE (NEGATIVE); URINE BLOOD DIPSTICK TRACE-LYSED (NEGATIVE); URINE COLOR YELLOW; URINE GLUCOSE - DIPSTICK NEGATIVE (NEGATIVE); URINE KETONE NEGATIVE (NEGATIVE); URINE LEUK ESTERASE NEGATIVE (NEGATIVE); URINE NITRITE - DIPSTICK NEGATIVE (Negative); URINE PH 7.5 (4.5-8.0); URINE PROTEIN - DIPSTICK NEGATIVE (NEG-TRACE); URINE UROBILINOGEN - DIPSTICK 0.2 E.U./dL (0.2)
[2019-05-30 15:54] LABS: BARBITURATES NEGATIVE (NEGATIVE); COCAINE NEGATIVE (NEGATIVE); METHADONE NEGATIVE (NEGATIVE); OXCYCODONE NEGATIVE (NEGATIVE); TETRAHYDROCANNABIONOL NEGATIVE (NEGATIVE); TRICYLIC ANTIDEPRESSANTS NEGATIVE (NEGATIVE)
== END 2019-05-30 16:50 | disposition home or self-care (01) | DRG 948 ==
PROVIDERS: Family Medicine
DX: R53.1 Weakness (principal); R42 Dizziness and giddiness; G40.909 Epilepsy, unspecified, not intractable, without status epilepticus; F31.9 Bipolar disorder, unspecified; F41.9 Anxiety disorder, unspecified

== ENCOUNTER 2019-06-25 | Emergency (ER) | payer SELFPAY | END 2019-06-25 12:58 | disposition home or self-care (01) | DRG 563 | DX: S63.502A Unspecified sprain of left wrist, initial encounter (principal); S63.92XA Sprain of unspecified part of left wrist and hand, initial encounter; F41.9 Anxiety disorder, unspecified; W18.30XA Fall on same level, unspecified, initial encounter ==

== ENCOUNTER 2019-12-05 09:45 | Emergency (ER) | payer SELFPAY ==
[~2019-12-05] VITALS: Ht 167.6 cm; Wt 63.6 kg
--- NOTE | 2019-12-05 12:32 | NUR ---
[facility]CD CONSULT FOR MED REC, CHECKED CLAIMS HISTORY AND NOTHING HAS BEEN FILLED SINCE 06/2019. PT USES [facility].
[2019-12-05 12:40] VITALS: BP 144/61
== END 2019-12-05 12:40 | disposition home or self-care (01) | DRG 605 ==
LOC: ED 09:45
DX: S00.83XA Contusion of other part of head, initial encounter (principal); G40.909 Epilepsy, unspecified, not intractable, without status epilepticus; T42.0X6A Underdosing of hydantoin derivatives, initial encounter; F31.9 Bipolar disorder, unspecified; F41.9 Anxiety disorder, unspecified; F17.200 Nicotine dependence, unspecified, uncomplicated; W06.XXXA Fall from bed, initial encounter; Y92.003 Bedroom of unspecified non-institutional (private) residence as the place of occurrence of the external cause; Z91.120 Patient's intentional underdosing of medication regimen due to financial hardship

== ENCOUNTER 2020-12-31 15:09 | Emergency (ER) | payer SELFPAY ==
[~2020-12-31] VITALS: Ht 167.6 cm; Wt 90.0 kg
[2020-12-31] MEDS ORDERED: RISPERIDONE2 MG PO (16:13)
[2020-12-31] MEDS ORDERED: VENLAFAXINE HC150 M1 PO (16:14)
[2020-12-31] MEDS ORDERED: TRILEPTAL600 M1 PO (16:14)
[2020-12-31 16:21] LABS: HEMATOCRIT 44.7 % (37.0-47.0); IMMATURE GRANULOCYTES 0.1 % (0.0-5.0); MEAN CORPUSCULAR HGB 28.8 pG CALC (26.0-32.0); MEAN CORPUSCULAR HGB CONC 31.3 g/dL CAL (32.0-36.0); NEUT# 8.38 thou/uL (2.00-7.15); RED BLOOD COUNT 4.86 mill/uL (4.20-5.60); RED CELL DISTRI WIDTH 15.7 % (11.5-15.5)
[2020-12-31 16:33] LABS: ALBUMIN 4.6 g/dL (3.2-5.0); ALKALINE PHOSPHATASE 121 u/l (38-126); BUN 11 mg/dL (7-17); BUN/CREATININE RATIO 10 (12-20 (CALC)); CHLORIDE 106 mmol/l (95-108); CREATININE 1.1 mg/dL (0.5-1.0); GFR 58 ML/MIN (>=60 (CALC)); GFR FOR AFR.AMER. > 60 ML/MIN (>=60 (CALC)); POTASSIUM 4.4 mmol/l (3.5-5.1); SGOT/AST 25 u/l (14-36); SODIUM 138 mmol/l (137-146); TOTAL PROTEIN 8.2 g/dL (6.3-8.2)
[2020-12-31 16:34] LABS: ANION GAP 17 (6-22 (CALC)); BILIRUBIN, TOTAL 0.5 mg/dL (0.0-1.4); CARBON DIOXIDE 19 mmol/l (22-30)
[2020-12-31] MEDS ORDERED: KEPPRA500 M2 PO (17:36)
[2020-12-31 18:40] VITALS: BP 114/73
== END 2020-12-31 18:38 | disposition home or self-care (01) | DRG 101 ==
LOC: ED 15:09
PROVIDERS: Emergency Medicine
DX: G40.409 Other generalized epilepsy and epileptic syndromes, not intractable, without status epilepticus (principal); F14.10 Cocaine abuse, uncomplicated; F31.9 Bipolar disorder, unspecified; F41.9 Anxiety disorder, unspecified; F17.200 Nicotine dependence, unspecified, uncomplicated; T42.76XA Underdosing of unspecified antiepileptic and sedative-hypnotic drugs, initial encounter; Z91.128 Patient's intentional underdosing of medication regimen for other reason
CPT/HCPCS: J1953

== ENCOUNTER 2021-03-22 18:46 | Emergency (ER) | payer OTHER ==
[~2021-03-22] VITALS: Ht 167.6 cm; Wt 75.0 kg
[~2021-03-22 18:46] MED LIST changes: +KEPPRA500 M2 PO; +RISPERIDONE2 MG PO; +TRILEPTAL600 M1 PO; +VENLAFAXINE HC150 M1 PO
[2021-03-22] MEDS ORDERED: DILANTIN100 MG PO (19:03)
[2021-03-22] MEDS ORDERED: CYCLOBENZAPRINE10 MG PO (22:10)
[2021-03-22] MEDS ORDERED: LORTAB 1010 MG PO (22:10)
[2021-03-22 22:38] VITALS: BP 116/65
== END 2021-03-22 23:18 | disposition home or self-care (01) | DRG 605 ==
LOC: ED 18:46
DX: S80.211A Abrasion, right knee, initial encounter (principal); S00.81XA Abrasion of other part of head, initial encounter; S83.92XA Sprain of unspecified site of left knee, initial encounter; M25.522 Pain in left elbow; M25.512 Pain in left shoulder; G40.909 Epilepsy, unspecified, not intractable, without status epilepticus; F31.9 Bipolar disorder, unspecified; F41.9 Anxiety disorder, unspecified; F17.200 Nicotine dependence, unspecified, uncomplicated; V49.50XA Passenger injured in collision with unspecified motor vehicles in traffic accident, initial encounter

== ENCOUNTER 2021-04-03 22:45 | Emergency (ER) | payer SELFPAY ==
[~2021-04-03] VITALS: Ht 167.6 cm; Wt 81.0 kg
[~2021-04-03 22:45] MED LIST changes: +CYCLOBENZAPRINE10 MG PO
[2021-04-03 23:49] LABS: URINE BILIRUBIN - DIPSTICK NEGATIVE (NEGATIVE); URINE BLOOD DIPSTICK NEGATIVE (NEGATIVE); URINE COLOR YELLOW; URINE GLUCOSE - DIPSTICK NEGATIVE (NEGATIVE); URINE KETONE NEGATIVE (NEGATIVE); URINE LEUK ESTERASE NEGATIVE (NEGATIVE); URINE PROTEIN - DIPSTICK NEGATIVE (NEG-TRACE); URINE UROBILINOGEN - DIPSTICK 0.2 E.U./dL (0.2)
[2021-04-03 23:57] LABS: URINE NITRITE - DIPSTICK NEGATIVE (Negative)
[2021-04-04] MEDS ORDERED: CLEOCIN300 MG PO (02:49)
[2021-04-04] MEDS ORDERED: LORTAB 1010 MG PO (02:49)
[2021-04-04 03:10] VITALS: BP 155/92
== END 2021-04-04 03:17 | disposition home or self-care (01) | DRG 605 ==
LOC: ED 22:45
PROVIDERS: Emergency Medicine
DX: S00.511A Abrasion of lip, initial encounter (principal); S00.512A Abrasion of oral cavity, initial encounter; S00.531A Contusion of lip, initial encounter; S00.532A Contusion of oral cavity, initial encounter; S02.5XXA Fracture of tooth (traumatic), initial encounter for closed fracture; G40.909 Epilepsy, unspecified, not intractable, without status epilepticus; F31.9 Bipolar disorder, unspecified; F41.9 Anxiety disorder, unspecified; F17.200 Nicotine dependence, unspecified, uncomplicated; X99.0XXA Assault by sharp glass, initial encounter; Y92.009 Unspecified place in unspecified non-institutional (private) residence as the place of occurrence of the external cause

== ENCOUNTER 2021-04-12 09:12 | Emergency (ER) | payer OTHER ==
[~2021-04-12] VITALS: Ht 167.6 cm; Wt 70.0 kg
[2021-04-12] MEDS ORDERED: LORTAB 5/3255 MG PO (10:29)
[2021-04-12] MEDS ORDERED: ATIVAN0.5 MG PO (10:29)
[2021-04-12 10:49] VITALS: BP 116/87
== END 2021-04-12 10:49 | disposition home or self-care (01) | DRG 159 ==
LOC: ED 09:12
DX: S02.5XXA Fracture of tooth (traumatic), initial encounter for closed fracture (principal); G40.909 Epilepsy, unspecified, not intractable, without status epilepticus; F31.9 Bipolar disorder, unspecified; F41.9 Anxiety disorder, unspecified; F17.200 Nicotine dependence, unspecified, uncomplicated; X58.XXXA Exposure to other specified factors, initial encounter

== ENCOUNTER 2021-04-27 11:51 | Emergency (ER) | payer SELFPAY ==
[~2021-04-27] VITALS: Ht 167.6 cm; Wt 86.0 kg
[~2021-04-27 11:51] MED LIST changes: +LORTAB 5/3255 MG PO
[2021-04-27] MEDS ORDERED: HYDROCO/APAP1 TA9 PO (15:35)
[2021-04-27] MEDS ORDERED: VISTARIL25 MG PO (15:35)
[2021-04-27 15:39] VITALS: BP 108/71
== END 2021-04-27 15:43 | disposition home or self-care (01) | DRG 159 ==
LOC: ED 11:51
DX: S02.5XXA Fracture of tooth (traumatic), initial encounter for closed fracture (principal); G40.909 Epilepsy, unspecified, not intractable, without status epilepticus; F31.9 Bipolar disorder, unspecified; F41.9 Anxiety disorder, unspecified; F17.200 Nicotine dependence, unspecified, uncomplicated; Y04.0XXA Assault by unarmed brawl or fight, initial encounter

== ENCOUNTER 2021-05-08 10:15 | Observation (INO) | payer SELFPAY ==
[~2021-05-08] VITALS: Ht 167.6 cm; Wt 71.0 kg
[2021-05-08] VITALS (52 sets, daily range): BP systolic 88–131; BP diastolic 46–93
[~2021-05-08 10:15] MED LIST changes: +HYDROCO/APAP1 TA9 PO; +VISTARIL25 MG PO
[2021-05-08 11:38] LABS: HEMATOCRIT 41.6 % (37.0-47.0); HEMOGLOBIN 13.2 g/dl (12.0-16.0); IMMATURE GRANULOCYTES 0.4 % (0.0-5.0); MEAN CELL VOLUME 89.8 fL CALC (80.0-100.0); MEAN CORPUSCULAR HGB 28.5 pG CALC (26.0-32.0); MEAN CORPUSCULAR HGB CONC 31.7 g/dL CAL (32.0-36.0); NEUT# 8.39 thou/uL (2.00-7.15); RED BLOOD COUNT 4.63 mill/uL (4.20-5.60); RED CELL DISTRI WIDTH 15.4 % (11.5-15.5)
[2021-05-08 11:45] LABS: ALKALINE PHOSPHATASE 111 u/l (38-126); ANION GAP 10 (6-22 (CALC)); BILIRUBIN, TOTAL 0.3 mg/dL (0.0-1.4); BUN 8 mg/dL (7-17); BUN/CREATININE RATIO 11 (12-20 (CALC)); CHLORIDE 109 mmol/l (95-108); CREATININE 0.7 mg/dL (0.5-1.0); ETHYL ALCOHOL 0 mg/dl (0-30); GFR > 60 ML/MIN (>=60 (CALC)); GFR FOR AFR.AMER. > 60 ML/MIN (>=60 (CALC)); LIPASE 37 u/l (23-300); MAGNESIUM 1.9 mg/dL (1.6-2.3); POTASSIUM 3.9 mmol/l (3.5-5.1); SGOT/AST 30 u/l (14-36); SODIUM 139 mmol/l (137-146); TOTAL PROTEIN 7.6 g/dL (6.3-8.2)
[2021-05-08 11:46] LABS: CARBON DIOXIDE 24 mmol/l (22-30)
[2021-05-08 11:57] LABS: ACT PARTIAL THROMBO TIME 26.3 SECONDS (20.0-32.5); INTERNATIONAL NORMALIZED RATIO 0.9 RATIO (0.7-1.3); PROTHROMBIN TIME 9.9 SECONDS (9.0-12.5)
[2021-05-08 12:30] LABS: URINE BILIRUBIN - DIPSTICK NEGATIVE (NEGATIVE); URINE BLOOD DIPSTICK TRACE-INTACT (NEGATIVE); URINE COLOR YELLOW; URINE GLUCOSE - DIPSTICK NEGATIVE (NEGATIVE); URINE KETONE NEGATIVE (NEGATIVE); URINE LEUK ESTERASE NEGATIVE (NEGATIVE); URINE PROTEIN - DIPSTICK NEGATIVE (NEG-TRACE); URINE UROBILINOGEN - DIPSTICK 0.2 E.U./dL (0.2)
[2021-05-08 12:32] LABS: URINE NITRITE - DIPSTICK NEGATIVE (Negative)
[2021-05-08] MEDS ORDERED: DILANTIN100 MG PO (13:12)
[2021-05-08] MEDS ORDERED: HYDROCO/APAP1 TA9 PO (14:47)
[2021-05-09] VITALS (40 sets, daily range): BP systolic 94–167; BP diastolic 51–79
== END 2021-05-09 11:30 | disposition left against medical advice (07) | DRG 101 ==
LOC: ED 10:15 → ED-I 11:32 → ED 13:59 → MS2 14:00 → ED-I 14:01
PROVIDERS: ADMIT Hospitalist; ATTEND Hospitalist
DX: G40.409 Other generalized epilepsy and epileptic syndromes, not intractable, without status epilepticus (principal); S00.511A Abrasion of lip, initial encounter; S13.9XXA Sprain of joints and ligaments of unspecified parts of neck, initial encounter; S00.531A Contusion of lip, initial encounter; F31.9 Bipolar disorder, unspecified; F41.9 Anxiety disorder, unspecified; F17.200 Nicotine dependence, unspecified, uncomplicated; W19.XXXA Unspecified fall, initial encounter; T42.0X6A Underdosing of hydantoin derivatives, initial encounter; Z91.128 Patient's intentional underdosing of medication regimen for other reason
CPT/HCPCS: J2060

== ENCOUNTER 2022-03-20 19:14 | Emergency (ER) | payer SELFPAY ==
[~2022-03-20] VITALS: Ht 167.6 cm; Wt 56.7 kg
[2022-03-20 19:38] VITALS: BP 116/81
[2022-03-20] MEDS ORDERED: ULTRAM50 MG PO (19:41)
[2022-03-20] MEDS ORDERED: CLEOCIN300 MG PO (19:41)
[2022-03-20 19:51] VITALS: BP 116/81
== END 2022-03-20 19:55 | disposition home or self-care (01) | DRG 159 ==
LOC: ED 19:14
DX: K08.89 Other specified disorders of teeth and supporting structures (principal)

== ENCOUNTER 2022-07-09 12:47 | Emergency (ER) | payer SELFPAY ==
[~2022-07-09] VITALS: Ht 167.6 cm; Wt 68.4 kg
[2022-07-09 12:58] VITALS: BP 110/67
[2022-07-09 13:00] VITALS: BP 116/68
[2022-07-09] MEDS ORDERED: CLINDAMYCIN HY150 MG PO (16:12)
[2022-07-09] MEDS ORDERED: METHOCARBAMOL500 MG PO (16:12)
[2022-07-09] MEDS ORDERED: PREDNISONE20 MG PO (16:12)
[2022-07-09 16:54] VITALS: BP 116/68
== END 2022-07-09 17:10 | disposition home or self-care (01) | DRG 159 ==
LOC: ED 12:47
DX: K08.89 Other specified disorders of teeth and supporting structures (principal); G40.909 Epilepsy, unspecified, not intractable, without status epilepticus; F31.9 Bipolar disorder, unspecified; F41.9 Anxiety disorder, unspecified

== ENCOUNTER 2022-11-05 13:33 | Emergency (ER) | payer SELFPAY ==
[~2022-11-05 13:33] MED LIST changes: +CLINDAMYCIN HY150 MG PO; +METHOCARBAMOL500 MG PO; +PREDNISONE20 MG PO
== END 2022-11-05 16:24 | disposition left against medical advice (07) | DRG 951 ==
LOC: ED 13:33 → LWOBS 16:23
DX: Z53.21 Procedure and treatment not carried out due to patient leaving prior to being seen by health care provider (principal)

== ENCOUNTER 2023-11-02 18:27 | Emergency (ER) | payer SELFPAY ==
[~2023-11-02] VITALS: Ht 167.6 cm; Wt 54.4 kg
[~2023-11-02 18:27] MED LIST changes: +HYDROXYZ HCL50 MG PO; +LAMOTRIGINE150 MG PO; +RISPERDAL0.5 MG PO
[2023-11-02] MEDS ORDERED: ERYTHROMYCIN OPTHALMIC 5 MG/GM TUBE OU ONE (19:50)
[2023-11-02] MEDS ORDERED: TRAMADOL HYDROC50 M1 PO (19:53)
[2023-11-02] MEDS ORDERED: CLINDAMYCIN HCL 150 MG CAP PO ONE ×2 (19:55)
[2023-11-02] MEDS ORDERED: traMADol HCL 50 MG/TAB PO ONE (20:15)
[2023-11-02] MEDS ORDERED: MAXITROL0.11 OU (20:16)
[2023-11-02 21:04] VITALS: BP 127/68
[2023-11-03] MEDS ORDERED: OFLOXACIN0.3 % OU (09:20)
== END 2023-11-02 21:04 | disposition home or self-care (01) | DRG 159 ==
LOC: ED 18:27
DX: K08.89 Other specified disorders of teeth and supporting structures (principal); H10.9 Unspecified conjunctivitis; G40.909 Epilepsy, unspecified, not intractable, without status epilepticus; F31.9 Bipolar disorder, unspecified; F41.9 Anxiety disorder, unspecified

== ENCOUNTER 2024-03-03 09:29 | Emergency (ER) | payer OTHER ==
[2024-03-03] VITALS (10 sets, daily range): BP systolic 93–118; BP diastolic 55–78
[~2024-03-03] VITALS: Ht 167.6 cm; Wt 72.0 kg
[~2024-03-03 09:29] MED LIST changes: +DIFLUCAN100 M1 PO; +MAXITROL0.11 OU; +OFLOXACIN0.3 % OU; +TRAMADOL HYDROC50 M1 PO; +TYLENOL500 MG PO
[2024-03-03 10:25] LABS: ALBUMIN 4.7 g/dL (3.2-5.0); ANION GAP 14 (6-22 (CALC)); BILIRUBIN, TOTAL 0.4 mg/dL (0.02-1.3); BUN 9 mg/dL (7-17); BUN/CREATININE RATIO 10 (12-20 (CALC)); CARBON DIOXIDE 22 mmol/l (22-30); CHLORIDE 108 mmol/l (95-108); CREATININE 0.9 mg/dL (0.5-1.0); ESTIMATED GFR 86 ML/MIN (>=90 (CALC)); POTASSIUM 4.1 mmol/l (3.5-5.1); SGOT/AST 31 u/l (14-36); SODIUM 139 mmol/l (137-146); TOTAL PROTEIN 8.5 g/dL (6.3-8.2)
[2024-03-03 10:39] LABS: BASO% 0.5 % (0-3); EOS% 2.7 % (0-8); HEMATOCRIT 41.7 % (37.0-47.0); HEMOGLOBIN 13.7 g/dl (12.0-16.0); IMMATURE GRANULOCYTES 0.1 % (0.0-5.0); LYMPH% 34.1 % (15-41); MEAN CELL VOLUME 88.7 fL CALC (80.0-100.0); MEAN CORPUSCULAR HGB 29.1 pG CALC (26.0-32.0); MEAN CORPUSCULAR HGB CONC 32.9 g/dL CAL (32.0-36.0); NEUT# 4.1 thou/uL (2.00-7.15); NEUT% 55.6 % (42-76); RED BLOOD COUNT 4.7 mill/uL (4.20-5.60); RED CELL DISTRI WIDTH 15.5 % (11.5-15.5)
[2024-03-03 10:45] LABS: ALKALINE PHOSPHATASE 116 u/l (38-126)
[2024-03-03 10:54] LABS: TSH, 3RD GENERATION 1.33 uIU/mL (0.47 - 4.68)
[2024-03-03] MEDS ORDERED: ACETAMINOPHEN 500 MG TAB PO ONE (11:40)
== END 2024-03-03 12:07 | disposition home or self-care (01) | DRG 313 ==
LOC: ED 09:29
PROVIDERS: Family Medicine
DX: R07.9 Chest pain, unspecified (principal)